=== PATIENT | male | born 1975 | race Caucasian/White ===

== ENCOUNTER 2016-07-26 04:26 | Emergency (ER) | payer MEDICARE, OTHER ==
[2016-07-26 05:32] LABS: HEMOGLOBIN 15.9 gm/dl (14.0-17.5); RED BLOOD COUNT 5.31 M/UL (4.20-5.50); WHITE BLOOD COUNT 7.5 K/UL (4.5-11.0)
[2016-07-26 05:56] LABS: BUN/CREATININE RATIO 16 (0-10)
== END 2016-07-26 06:41 | disposition home or self-care (01) ==
LOC: ER1 04:26
PROVIDERS: Family Medicine
DX: R06.02 Shortness of breath (principal); R73.9 Hyperglycemia, unspecified; F41.9 Anxiety disorder, unspecified; F43.10 Post-traumatic stress disorder, unspecified; F17.210 Nicotine dependence, cigarettes, uncomplicated; Z88.2 Allergy status to sulfonamides; Z88.0 Allergy status to penicillin; Z88.8 Allergy status to other drugs, medicaments and biological substances; Z79.899 Other long term (current) drug therapy
CPT/HCPCS: 36415; 71020; 80053; 82550; 82553; 83874; 84484; 85025; 85379; 93005; 99285

== ENCOUNTER 2020-09-20 21:15 | Emergency (ER) | payer MEDICARE, OTHER | END 2020-09-21 03:05 | disposition home or self-care (01) | LOC: ER1 21:15 | DX: R51.9 Headache, unspecified (principal); Z88.0 Allergy status to penicillin; Z88.2 Allergy status to sulfonamides; Z90.49 Acquired absence of other specified parts of digestive tract | CPT/HCPCS: 85652; 96374; 96375; 99284; J1100; J1200; J1885; J2405 ==